=== PATIENT | male | born 2000 | race Two or more races ===

== ENCOUNTER → 2022-01-01 | Emergency (ER) | payer OTHER ==
[~2022-01-01] VITALS: Ht 162.6 cm; Wt 59.9 kg
== END | disposition designated cancer center or children's hospital (05) ==
LOC: ER 11:56
DX: S99.20 Unspecified physeal fracture of phalanx of toe (principal); W23.0XXA Caught, crushed, jammed, or pinched between moving objects, initial encounter; Y93.9 Activity, unspecified; Y92.9 Unspecified place or not applicable; Y99.9 Unspecified external cause status